=== PATIENT | female | born 1985 | race Two or more races ===

== ENCOUNTER → 2017-01-09 | Outpatient (CLI) | payer BC ==
--- NOTE | 2017-01-09 15:41 | NM ---
EXAMINATION TYPE: NM parathyroid w/spect DATE OF EXAM: 01/09/2017 COMPARISON: NONE HISTORY: Hyperparathyroidism TECHNIQUE: Following administration of 28.2 mCi Tc99m Sestamibi. Anterior projection images of the neck and ches t were obtained 10 minutes and 3 hours post injection. SPECT images of the neck and chest were obtai leon and reconstructed in three axes. FINDINGS: Thyroid tracer washout: Delayed images demonstrate near-complete tracer washout from the thyroid. Parathyroid uptake: None. The two-hour delayed images do not demonstrate any focal abnormal persisten t uptake in the region of the parathyroid glands to suggest parathyroid adenoma. Normal uptake: There is physiological tracer uptake in the myocardium, liver, salivary glands, and th yroid gland. IMPRESSION: Normal parathyroid imaging study. No evidence for mediastinal uptake to suggest mediastinal parathyro id adenoma
== END | disposition home or self-care (01) ==
LOC: RADNMMAIN 10:39
PROVIDERS: ATTEND Otolaryngology
DX: E21.2 Other hyperparathyroidism (principal); R53.83 Other fatigue
CPT/HCPCS: 78071; A9500

== ENCOUNTER → 2017-07-12 | Outpatient (CLI) | payer BC ==
--- NOTE | 2017-07-12 13:24 | US ---
EXAMINATION TYPE: US thyroid st tissue head/neck DATE OF EXAM: 07/12/2017 COMPARISON: None CLINICAL HISTORY: 32-year-old female with Thyromegaly. 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 FINDINGS: Right Lobe: 5.4 x 1.6 x 2.4 cm Overall Parenchyma: heterogenous Left Lobe: 4.2 x 1.3 x 2.2 cm Overall Parenchyma: heterogeneous Isthmus Thickness: 0.4 cm Bilateral neck scanned, no evidence of lymphadenopathy. Bilateral thyroid gland grossly heterogeneous . IMPRESSION: Gland measuring at the upper limits of normal in size. There is marked diffuse glandular heterogeneit y which can be seen in the setting of Olivia's thyroiditis. No discrete nodule.
== END | disposition home or self-care (01) ==
LOC: RADUSWWP 12:35
PROVIDERS: ATTEND Otolaryngology
DX: E01.0 Iodine-deficiency related diffuse (endemic) goiter (principal)
CPT/HCPCS: 76536

== ENCOUNTER → 2017-07-12 | Outpatient (CLI) | payer BC ==
[2017-07-12 12:51] LABS: Basophils # (A) 0.1 k/uL (0-0.2); Basophils % (A) 1 %; Eosinophils # (A) 0.2 k/uL (0-0.7); Eosinophils % (A) 2 %; Lymphocytes # (A) 1.6 k/uL (1.0-4.8); Lymphocytes % (A) 23 %; MCH 28.1 pg (25.0-35.0); MCHC 32.6 g/dL (31.0-37.0); MCV 86.1 fL (80.0-100.0); Mean Platelet Volume 7.5; Monocytes # (A) 0.4 k/uL (0-1.0); Monocytes % (A) 5 %; Neutrophils # (A) 4.6 k/uL (1.3-7.7); Neutrophils % (A) 67 %; Platelet Count 406 k/uL (150-450); RDW 12.8 % (11.5-15.5); WBC 6.8 k/uL (3.8-10.6)
[2017-07-12 13:16] LABS: T4, Free (Free Thyroxine) 1.4 ng/dL (0.78-2.19)
[2017-07-12 19:09] LABS: Iron Saturation 17.69 (12.00-45.00)
[2017-07-12 19:19] LABS: Vitamin D 25 Hydroxy 47.9 ng/mL (30.0-100.0)
[2017-07-12 19:22] LABS: Parathyroid Hormone Intact 43.5 pg/mL (14.0-72.0)
[2017-07-13 16:19] LABS: Zinc, Serum 56 ug/dL (60-130)
== END | disposition home or self-care (01) ==
LOC: LABWHC1 12:12
PROVIDERS: ATTEND Otolaryngology
DX: E06.9 Thyroiditis, unspecified (principal); E21.3 Hyperparathyroidism, unspecified; E55.9 Vitamin D deficiency, unspecified; K58.9 Irritable bowel syndrome, unspecified; R10.9 Unspecified abdominal pain
CPT/HCPCS: 36415; 82306; 82525; 82607; 82728; 83516; 83540; 83550; 83970; 84439; 84443; 84480; 84630; 85025

== ENCOUNTER → 2018-06-25 | Outpatient (CLI) | payer BC ==
[2018-06-25 11:01] LABS: Basophils # (A) 0.1 k/uL (0-0.2); Basophils % (A) 1 %; Eosinophils # (A) 0.1 k/uL (0-0.7); Eosinophils % (A) 1 %; HCT 44.3 % (34.0-46.0); HGB 14.2 gm/dL (11.4-16.0); Lymphocytes # (A) 1.5 k/uL (1.0-4.8); Lymphocytes % (A) 23 %; MCH 28.6 pg (25.0-35.0); MCHC 32.1 g/dL (31.0-37.0); MCV 89.2 fL (80.0-100.0); Mean Platelet Volume 6.3; Monocytes # (A) 0.3 k/uL (0-1.0); Monocytes % (A) 4 %; Neutrophils # (A) 4.5 k/uL (1.3-7.7); Neutrophils % (A) 69 %; Platelet Count 369 k/uL (150-450); RBC 4.96 m/uL (3.80-5.40); RDW 12.9 % (11.5-15.5); WBC 6.5 k/uL (3.8-10.6)
[2018-06-25 18:35] LABS: Total Bilirubin 0.4 mg/dL (0.2-1.2)
[2018-06-25 21:12] LABS: Hemoglobin A1C 4.5 % (4.0-6.0)
== END ==
LOC: LABWHC1 09:46
PROVIDERS: ATTEND Nurse Practitioner Family
DX: K85.90 Acute pancreatitis without necrosis or infection, unspecified (principal)
CPT/HCPCS: 36415; 82150; 82247; 82378; 83036; 83690; 85025

== ENCOUNTER → 2019-12-27 | Outpatient (CLI) | payer BC ==
--- NOTE | 2019-12-27 11:16 | US ---
EXAMINATION TYPE: US thyroid st tissue head/neck DATE OF EXAM: 12/27/2019 COMPARISON: US CLINICAL HISTORY: E04.1 Thyroid Nodule. Enlarged thyroid GLAND SIZE: Right Lobe: 5.1 x 1.8 x 2.2 cm Overall Parenchyma: heterogenous Left Lobe: 4.7 x 1.3 x 2.1 cm Overall Parenchyma: heterogeneous Isthmus Thickness: 0.3 cm NODULES RIGHT: # of nodules measured on right: 0 LEFT: # of nodules measured on left: 0 ISTHMUS: # of nodules measured in the isthmus: 0 Bilateral neck scanned, no evidence of lymphadenopathy. Normal appearing nodes noted right lateral neck. IMPRESSION: Bilaterally enlarged and heterogeneous gland.
== END | disposition home or self-care (01) ==
LOC: RADUSWWP 10:31
PROVIDERS: ATTEND Otolaryngology
DX: E04.1 Nontoxic single thyroid nodule (principal)
CPT/HCPCS: 76536

== ENCOUNTER → 2020-08-01 | Outpatient (CLI) | payer BC ==
--- NOTE | 2020-08-05 05:03 | MR ---
EXAMINATION TYPE: MR brain and iac wo/w con DATE OF EXAM: 08/01/2020 COMPARISON: None HISTORY: Left SNHL, Left neck pain, headaches, dizziness. Abnormal CT. Hx melanoma as a child. CONTRAST: Standard multiplanar, multisequence MRI departmental protocol utilizing 10 mL intravenous Gadavist ga dolinium contrast. Ventricles and sulci appear normal. There is no mass effect nor midline shift. There is no evidence o f intracranial hemorrhage. Blunt-white matter structures have fairly normal signal pattern. There is n o evidence of cerebral edema. Corpus callosum appears normal. Brainstem is intact. Cerebellum appears normal. Sella turcica is norm al. There is no evidence of orbital mass. Diffusion images show no evidence of cortical infarct. There is good visualization of the internal auditory canals. There is normal appearance of the acoust ic nerve and vestibular nerves. There is no evidence of cerebellopontine angle mass. There is normal signal pattern of the temporal bones. There is normal enhancement of the venous sinuses. There is no pathologic enhancement. IMPRESSION: Negative MR scan of the brain. No evidence of posterior fossa abnormality.
== END | disposition home or self-care (01) ==
LOC: RADMRIMAIN 10:38
PROVIDERS: ATTEND Nurse Practitioner Family
DX: H90.42 Sensorineural hearing loss, unilateral, left ear, with unrestricted hearing on the contralateral side (principal); Z85.820 Personal history of malignant melanoma of skin
CPT/HCPCS: 70553; A9585

== ENCOUNTER → 2021-08-02 | Outpatient (CLI) | payer BC ==
--- NOTE | 2021-08-03 10:18 | MR ---
EXAMINATION TYPE: MR brain wo/w con DATE OF EXAM: 08/02/2021 COMPARISON: MRI brain August 01, 2020 HISTORY: D32.9, Meningioma. Dizziness occasionally. Headaches. TECHNIQUE: Multiplanar, multisequence images of the brain and brainstem is performed without and with IV contras t, utilizing 9 mL intravenous Gadavist . FINDINGS: Diffusion weighted images demonstrate no evidence of a recent infarct or other diffusion ab normality. There is no new extra-axial fluid collection or significant white matter signal abnormali ty. The ventricular system and cisternal spaces remain normal in size and appearance. The brain vol ume is age appropriate. Midline structures redemonstrate normal morphology. The craniocervical junction remains within bekah l limits. Post contrast images demonstrate no new abnormal enhancement. The dural venous sinuses malcolm ear patent. The visualized sinuses are clear and the globes are intact. IMPRESSION: Unremarkable study. No significant change from prior.
== END | disposition home or self-care (01) ==
LOC: RADMRIMAIN 07:55
PROVIDERS: ATTEND Psychiatry & Neurology Neurology
DX: D32.9 Benign neoplasm of meninges, unspecified (principal)
CPT/HCPCS: 70553; A9585

== ENCOUNTER → 2022-12-29 | Outpatient (CLI) | payer BC ==
[2022-12-29 14:14] LABS: T4, Free (Free Thyroxine) 1.53 ng/dL (0.80-1.80)
[2022-12-30 11:34] LABS: Yeast Bakers/Brew IgE <0.10 kU/L (<0.10); Yeast Bakers/Brew IgE Class CLASS 0
== END | disposition home or self-care (01) ==
LOC: LABWHC1 09:15
PROVIDERS: ATTEND Otolaryngology
DX: E06.3 Autoimmune thyroiditis (principal); L50.0 Allergic urticaria; T78.1XXA Other adverse food reactions, not elsewhere classified, initial encounter; Z79.890 Hormone replacement therapy
CPT/HCPCS: 36415; 84439; 84443; 84480; 84481; 86003

== ENCOUNTER → 2023-04-25 | Outpatient (CLI) | payer BC ==
--- NOTE | 2023-04-27 10:08 | MR ---
EXAMINATION: MR femur/thigh RT wo/w con DATE OF EXAM: 04/25/2023 COMPARISON: History of melanoma. Swelling/mass. HISTORY: History of malignant melanoma of skin, localized swelling of lymph nodes of right medial kne e, marker placed. TECHNIQUE: Multiplanar, multisequence images of the right thigh were acquired before and after admini stration of intravenous contrast. FINDINGS: BONES/MARROW: Normal bone marrow signal. SOFT TISSUES: Skin marker is placed over the anteromedial distal leg at the level of the superior sarah e of the patella. No mass, fluid collection, or abnormal enhancement subjacent to the skin marker. Pr oximal to the skin marker, also within the anterior medial distal thigh, there is a nonenhancing 2.4 cm linear low T1/high T2 signal structure in the very superficial subcutaneous fat with overlying ski n irregularity, likely representing postsurgical scar. Myotendinous structures are normal. No anatomi c variant. No bursal distention. No fluid collection. NEUROVASCULAR: Visualized neurovascular structures are normal. OTHER: Normal. No mass. No lymphadenopathy. IMPRESSION: 1. No mass, fluid collection, lymphadenopathy, or abnormal enhancement at the skin marker. 2. Nonenhancing low T1/T2 structure in the very superficial subcutaneous fat anteromedial distal thig h (proximal to the skin marker), may represent postsurgical scar. Correlate with surgical history.
== END | disposition home or self-care (01) ==
LOC: RADMRIMAIN 04-21 06:18
PROVIDERS: ATTEND Student in an Organized Health Care Education/Training Program
DX: D23.9 Other benign neoplasm of skin, unspecified (principal); R59.0 Localized enlarged lymph nodes; Z85.820 Personal history of malignant melanoma of skin
CPT/HCPCS: 73720; A9585

== ENCOUNTER → 2023-07-01 | Outpatient (CLI) | payer BC ==
[2023-07-01 13:51] LABS: ALT 26 U/L (8-44); AST 31 U/L (13-35); Albumin 4.3 g/dL (3.8-4.9); Albumin/Globulin Ratio 1.54 Ratio (1.60-3.17); Alkaline Phosphatase 87 U/L (41-126); BUN/Creat Ratio 23.43 Ratio (12.00-20.00); Blood Urea Nitrogen 16.4 mg/dL (9.0-27.0); Calcium 9.4 mg/dL (8.7-10.3); Carbon Dioxide 25.5 mmol/L (21.6-31.8); Chloride 101 mmol/L (96-109); Globulin 2.8 g/dL (1.6-3.3); Glucose 89 mg/dL (70-110); Potassium 4.1 mmol/L (3.5-5.5); Sodium 138 mmol/L (135-145); Total Bilirubin 0.4 mg/dL (0.3-1.2); Total Protein 7.1 g/dL (6.2-8.2)
[2023-07-03 12:45] LABS: Latex IgE Class CLASS 0; Oat IgE Class CLASS 0; Pear IgE Class CLASS 0; Yeast Bakers/Brew IgE <0.10 kU/L (<0.10); Yeast Bakers/Brew IgE Class CLASS 0
== END | disposition home or self-care (01) ==
LOC: LABWHC1 08:20
PROVIDERS: ATTEND Internal Medicine Endocrinology, Diabetes & Metabolism
DX: E03.8 Other specified hypothyroidism (principal); E55.9 Vitamin D deficiency, unspecified; E21.3 Hyperparathyroidism, unspecified; L50.0 Allergic urticaria
CPT/HCPCS: 36415; 80053; 82306; 83970; 84443; 86003

== ENCOUNTER → 2023-07-12 | Outpatient (CLI) | payer BC ==
[2023-07-12 17:01] LABS: HCT 40.6 % (37.2-46.3); HGB 13.4 g/dL (12.0-15.0); MCH 29.4 pg (27.0-32.0); Mean Platelet Volume 9.9 FL (9.5-12.2); NRBC Per 100 WBC 0 X 10*3/uL (0.00-0.01); Platelet Count 423 X 10*3/uL (140-440); RBC 4.56 X 10*6/uL (4.10-5.20); RDW 12.2 % (11.5-14.5); WBC 6.63 X 10*3/uL (4.50-10.00)
[2023-07-12 17:39] LABS: ALT 16 U/L (8-44); AST 26 U/L (13-35); Alkaline Phosphatase 87 U/L (41-126); Blood Urea Nitrogen 18.4 mg/dL (9.0-27.0); Calcium 9.4 mg/dL (8.7-10.3); Carbon Dioxide 27.1 mmol/L (21.6-31.8); Chloride 104 mmol/L (96-109); Globulin 2.5 g/dL (1.6-3.3); Glucose 91 mg/dL (70-110); Potassium 4.3 mmol/L (3.5-5.5); Sodium 139 mmol/L (135-145); T4, Free (Free Thyroxine) 1.59 ng/dL (0.80-1.80); Total Bilirubin 0.2 mg/dL (0.3-1.2); Total Protein 6.5 g/dL (6.2-8.2)
[2023-07-12 17:51] LABS: Follicle Stimulating Hormone 2.8 mIU/mL
== END | disposition home or self-care (01) ==
LOC: LABWHC1 10:30
PROVIDERS: ATTEND Internal Medicine Endocrinology, Diabetes & Metabolism
DX: R53.83 Other fatigue (principal)
CPT/HCPCS: 36415; 80053; 82024; 82533; 82607; 83001; 83036; 84146; 84305; 84439; 84443; 84481; 85027

== ENCOUNTER → 2023-08-11 | Outpatient (CLI) | payer BC ==
--- NOTE | 2023-08-11 11:49 | MR ---
EXAMINATION TYPE: MR brain wo/w con DATE OF EXAM: 08/11/2023 COMPARISON: 08/02/2021 HISTORY: F/U benign tumor of meninges TECHNIQUE: Multiplanar, multisequence images of the brain and brainstem is performed without and with IV contras t, utilizing 10 mL intravenous Gadavist . FINDINGS: Diffusion weighted images demonstrate no evidence of a recent infarct or other diffusion ab normality. There is no extra-axial fluid collection or significant white matter signal abnormality. The ventricular system and cisternal spaces are normal in size and appearance. The brain volume is age appropriate. Midline structures demonstrate normal morphology. Cerebellar tonsils are low-lying in position compat ible with Chiari I malformation. No tonsillar beaking.. Post contrast images demonstrate no abnormal enhancement. The dural venous sinuses appear patent. The visualized sinuses are clear and the globes are intact. IMPRESSION: 1. No evidence of enhancing mass. 2. Low-lying cerebellar tonsils correlate for Chiari I malformation and history of chronic headaches. No tonsillar beaking.
== END | disposition home or self-care (01) ==
LOC: RADMRIMAIN 10:27
PROVIDERS: ATTEND Psychiatry & Neurology Neurology
DX: G93.89 Other specified disorders of brain (principal); D32.0 Benign neoplasm of cerebral meninges
CPT/HCPCS: 70553; A9585

== ENCOUNTER → 2024-03-16 | Outpatient (CLI) | payer BC ==
--- NOTE | 2024-03-16 17:20 | MR ---
EXAMINATION TYPE: MR pancreas wo/w con DATE OF EXAM: 03/16/2024 9:15 AM COMPARISON: 07/05/2014. 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 Post contrast imaging was performed. Post IV contrast subtraction images were also submitted for review. IV Contrast: 8.5 mL Gadavist FINDINGS: LOWER CHEST: No gross irregularity. ABDOMEN Liver: No evidence for hepatic steatosis or cirrhosis. High T2 signal lesion in hepatic lobe measurin g 8 mm which demonstrates arterial phase enhancement which persists on delayed imaging. Gallbladder and Bile ducts: No evidence for ductal dilation, or biliary stricture or evidence of chol edocholithiasis. The gallbladder demonstrates cholelithiasis. The gallbladder neck. The common hepati c duct measures up to 5 mm and the common bile duct up to 5 mm. Pancreas: No ductal dilation. No evidence for solid mass. Spleen: Normal for size. Adrenal glands: Unremarkable. Kidneys: No evidence for obstructive uropathy. No suspicious renal masses. Stomach and Bowel: No evidence for bowel wall thickening or evidence for obstruction. Retroperitoneum/Peritoneum: No evidence of pneumoperitoneum or free fluid. Vasculature: No aortic aneurysm. Musculoskeletal: The osseous structures appear intact. Lymph Nodes: No gross evidence for lymphadenopathy. Abdominal wall: Unremarkable. IMPRESSION: 1. No evidence for pancreatic mass. No acute abdominal process. No evidence for lymphadenopathy. 2. Cholelithiasis. 3. Suspected left hepatic lobe flash filling hemangioma versus other benign arterial enhancing liver lesion. [facility] Lorrie Joseph, , 03/16/2024 5:18 PM
== END | disposition home or self-care (01) ==
LOC: RADMRIMAIN 08:05
PROVIDERS: ATTEND Internal Medicine Endocrinology, Diabetes & Metabolism
DX: K80.20 Calculus of gallbladder without cholecystitis without obstruction (principal); Z15.01 Genetic susceptibility to malignant neoplasm of breast; Z85.07 Personal history of malignant neoplasm of pancreas; Z85.820 Personal history of malignant melanoma of skin; Z87.59 Personal history of other complications of pregnancy, childbirth and the puerperium
CPT/HCPCS: 74183; A9585